=== PATIENT | female | born 1965 | race African-American/Black ===

== ENCOUNTER 2017-05-15 06:42 | Day surgery (SDC) | payer OTHER ==
[~2017-05-15] VITALS: Ht 167.6 cm; Wt 129.7 kg
[2017-05-15] VITALS (12 sets, daily range): BP systolic 109–143; BP diastolic 67–88
[~2017-05-15 06:42] MED LIST: ADVAIR 250-501 EACH INH; AMLODIPINE BESYL5 MG ORAL; BENAZEPRIL HCL40 MG ORAL; GABAPENTIN800 MG ORAL; HYDROCHLOROTHIA25 MG ORAL; METFORMIN HCL500 M1 ORAL; MIRTAZAPINE7.5 MG ORAL; Ropivacaine 5mg/ml Vial 30ml INJ ONE; TRAZODONE HCL50 MG ORAL; ceFAZolin 1gm in D5W 55ml IVP ONE; celeBREX 200mg Cap **SURGERY PATIENTS ONLY ORAL ONE; oxyCONTIN 20mg tab ORAL ONE
--- NOTE | 2017-05-15 07:25 | Pre-Procedure Note/Attestation ---
Pre-Procedure Note/Attestation Complete Prior to Procedure Planned Procedure: right Procedure Narrative: ankle arthroscopy, lateral ligament reconstruction Indications for Procedure Pre-Operative Diagnosis: right ankle ligament tear Attestation I attest that I discussed the nature of the procedure; its benefits; risks and complications; and alternatives (and the risks and benefits of such alternatives ), prior to the procedure, with the patient (or the patient's legal sales representative jewelry). I attest that, if there was a reasonable possibility of needing a blood transfusion, the patient (or the patient's legal sales representative jewelry) was given the [facility] standardized written summary, pursuant to the [place] Blood Safety Act ([place] Health and Safety Code # 1645, as amended). I attest that I re-evaluated the patient just prior to the surgery and that there has been no change in the patient's H&P, except as documented below: ANDREW SHARPE May 15, 2017 07:25
--- NOTE | 2017-05-15 07:25 | Operative Note - PDOC ---
Operative Note Operative Note Pre-op Diagnosis: right ankle ligament tear Procedure: right ankle arthrscopy, ligament reconstruction Post-op Diagnosis: same as pre-op plus Operative Findings: consistent w/pre-op dx studies Anesthesia: MAC Specimen: none Complications: none Condition: stable Estimated Blood Loss: none Implant(s) used?: No ANDREW SHARPE May 15, 2017 07:25
[2017-05-15] MEDS ORDERED: Norco 5mg/325mg tab ORAL PRN (07:30)
[2017-05-15] MEDS ORDERED: Tylenol #3 tab (300mg/30mg) ORAL PRN (07:30)
[2017-05-15] MEDS ORDERED: D5 1/2NS 1,000 ML IV SCH (07:30)
[2017-05-15] MEDS ORDERED: HYDROmorphone 1mg/ml Carpuject SUBQ PRN (07:30)
[2017-05-15] MEDS ORDERED: Morphine Sulfate PF 10 ML ONE (13:23)
[2017-05-15] MEDS ORDERED: Ketorolac 30mg Inj ONE ×2 (13:23→14:00)
[2017-05-15] MEDS ORDERED: Bupivacaine 0.5% Inj 30 ml vial INJ ONE (13:23)
[2017-05-15] MEDS ORDERED: Kenalog-40 1ml Vial ONE (13:23)
[2017-05-15] MEDS ORDERED: Propofol 200mg/20ml IV ONE (13:24)
[2017-05-15] MEDS ORDERED: LR 1000ml ONE (14:00)
[2017-05-15] MEDS ORDERED: NS Irrig 2000ml IRRIG ONE (14:00)
[2017-05-15] MEDS ORDERED: Morphine Sulfate 10mg/ml Inj ONE (14:00)
[2017-05-15] MEDS ORDERED: fentaNYL 100 mcg/2 mL IV ONE (14:00)
[2017-05-15] MEDS ORDERED: Midazolam 2mg/2ml Inj ONE (14:00)
[2017-05-15] MEDS ORDERED: LR 1000ml 1,000 ML IVLG SCH (14:13)
--- NOTE | 2017-05-15 14:13 | Anethesia Preoperative Eval ---
Anesthesia Pre-op PMH/ROS General Date of Evaluation: May 15, 2017 Time of Evaluation: 13:50 Anesthesiologist: Daphne ASA Score: ASA 3 Mallampati Score Class I : Soft palate, uvula, fauces, pillars visible Class II: Soft palate, uvula, fauces visible Class III: Soft palate, base of uvula visible Class IV: Only hard plate visible Mallampati Classification: Class III Surgeon: Samuel Diagnosis: R foot pain Surgical Procedure: R ancle arthroscopy Anesthesia History: none Social History: smoking - h/o Family History: no anesthesia problems Allergies: Coded Allergies: MEDROXYPROGESTERONE (Unverified Allergy, Unknown, 05/14/17) Uncoded Allergies: DEPO SHOT (Adverse Reaction, Intermediate, "blood clot in my leg", 05/14/17 ) Medications: see eMAR Past Medical History Cardiovascular: Reports: HTN, Denies: CAD, [place], valve dz, arrhythmia, other Pulmonary: Reports: GRAY, Denies: asthma, COPD, other Gastrointestinal/Genitourinary: Reports: GERD, Denies: CRI, ESRD, other Neurologic/Psychiatric: Reports: depression/anxiety, other - chronic pain, Denies: dementia, CVA, TIA Endocrine: Reports: DM, Denies: hypothyroidism, steroids, other HEENT: Denies: cataract (L), cataract (R), glaucoma, [place] (L), [place] (R), other Hematology/Immune: Reports: DVT - h/o Musculoskeletal/Integumentary: Reports: DJD Other: obesity - morbid obesity PMH Narrative: as above PSxH Narrative: Lumbar spine Anesthesia Pre-op Phys. Exam Physician Exam Last Vital Signs Date Time Temp Pulse Resp B/P (MAP) Pulse Ox O2 Delivery O2 Flow Rate FiO2 05/15/17 08:46 97.4 85 18 124/74 99 Room Air Constitutional: NAD Neurologic: CN 2-12 intact Cardiovascular: RRR, no M/R/G Respiratory: CTA Gastrointestinal: other - morbid obesity Airway Exam Mallampati Score: Class III MO: full Neck: short ROM: full Teeth: missing Dentures: no upper, no lower Anesthesia Pre-op A/P Labs see chart Studies Pre-op Studies: EKG - NSR Risk Assessment & Plan Assessment: ASA 3 Plan: GA with LMA R popliteal fossa block for p/op pain control Status Change Before Surgery: No Pre-Antibiotics Drug: Ancef 2 gr. Given Within 1 Hr of Incision: Yes Time Given: 14:50 ERNESTO VILLAGRAN M.D. May 15, 2017 14:13
[2017-05-15] MEDS ORDERED: Midazolam 2mg/2ml Inj IVP PRN (14:15)
[2017-05-15] MEDS ORDERED: Ketorolac 30mg Inj IV PRN (14:15)
[2017-05-15] MEDS ORDERED: DiphenhydrAMINE 50mg/ml Inj IVP PRN (14:15)
[2017-05-15] MEDS ORDERED: Meperidine 50mg/ml Inj(FOR RIGORS ONLY) IV PRN (14:15)
[2017-05-15] MEDS ORDERED: Hydromorphone 0.5mg/0.5ml inj IVP PRN (14:15)
[2017-05-15] MEDS ORDERED: Lidocaine 1% 10mg/ml/Epi 0.005mg/ml 30ml vial INJ ONE (15:26)
--- NOTE | 2017-05-15 16:55 | Immediate Post-Op Evaluation ---
Immediate Post-Op Evalulation Immediate Post-Op Evalulation Procedure: R ancle arthroscopy ligament reconstruction Date of Evaluation: May 15, 2017 Time of Evaluation: 16:54 IV Fluids: 1000 Blood Products: none Estimated Blood Loss: min Urinary Output: none Blood Pressure Systolic: 128 Blood Pressure Diastolic: 64 Pulse Rate: 87 Respiratory Rate: 20 O2 Sat by Pulse Oximetry: 99 Temperature (Fahrenheit): 98.4 Pain Score (1-10): 2 Nausea: No Vomiting: No Complications none Patient Status: reacts, patent, none Hydration Status: adequate ERNESTO VILLAGRAN M.D. May 15, 2017 16:55
--- NOTE | 2017-05-15 17:39 | 48 Hour Post Anesthesia Eval ---
Post Anesthesia Evaluation Procedure: R ancle arthroscopy ligament reconstruction Date of Evaluation: May 15, 2017 Time of Evaluation: 17:38 Blood Pressure Systolic: 138 0: 82 Pulse Rate: 70 Respiratory Rate: 20 Temperature (Fahrenheit): 97.6 O2 Sat by Pulse Oximetry: 98 Airway: patent Nausea: No Vomiting: No Pain Intensity: 2 Hydration Status: adequate Cardiopulmonary Status: stable Mental Status/LOC: patient returned to baseline Follow-up Care/Observations: n/a Post-Anesthesia Complications: none Follow-up care needed: ready to discharge ERNESTO VILLAGRAN M.D. May 15, 2017 17:39
--- NOTE | 2017-05-15 23:16 | Procedure Note ---
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 POSTOPERATIVE DIAGNOSES: 1. 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 2. Right ankle soft tissue impingement, medial and lateral gutter, right ankle. PROCEDURE: 1. Right ankle diagnostic arthroscopy and synovectomy. 2. Right anatomic lateral ligament reconstruction (Brostrom) with groove modification. SURGEON: Demetrius Baker M.D. ANESTHESIA: General. INDICATION FOR PROCEDURE: The patient is a pleasant female with right ankle sprain. She has little bit of pain and instability. She was diagnosed with chondroplasty of the anterior talofibular ligament and high-grade tear of the posterior talofibular ligament. Given that she failed conservative treatment, still has significant symptoms, she elected to undergo right ankle arthroscopy and lateral ligament reconstruction. Risks, limitations, expectations, and complications of the procedure were discussed in detail. All questions were addressed. DESCRIPTION OF PROCEDURE: An informed consent was obtained. The patient was brought to the operating room. The patient was placed under general anesthesia. The patient was then carefully placed on the table and tourniquet was applied to right proximal thigh. Right leg was prepped and draped in a sterile manner. Ancef was administered. Time-out was performed. The medial working portal just medial to the right ankle was then placed in traction. The initial medial portal just medial to the tibialis anterior tendon was identified with a 20-gauge needle. A 5 mL of Duramorph was injected into the joint. Once it was confirmed the needle was in the ankle joint, the skin was incised. Blunt dissection down to the ankle joint was performed. A trocar was placed into the ankle. There was synovitis in the anterior compartment of the right ankle. An inside-out lateral portal was established. A shear was then placed and a complete synovectomy of the anterior and lateral compartment of the ankle was performed. Once that was done, the lateral gutter was well visualized, free of any loose bodies. The camera was placed in the lateral viewing portal and synovectomy of the medial gutter was performed. Once the synovectomy was completed, medial gutter was entered, free of any meniscal chondral damage. There was no chondral damage to the tibiotalar joint. No loose bodies. At this point, the instruments were removed. Attention was turned towards the ligament reconstruction. A curvilinear incision along the fibula was made. Blunt dissection of subcutaneous tissue was performed. The extensor retinaculum was identified and protected with a sand retractor. At this point, the inferior aspect of the fibula was identified. The peroneal tendon sheath was incised and the peroneal tendon was explored and noted to be intact with no evidence of tenosynovitis. At this point, the attenuated tissue along the lateral ligament complex was identified and 0 Ethibond sutures were placed in [id number] fashion. Once the lateral ligament complex was imbricated, I then turned towards the groove modification. The extensor retinaculum was identified and the extensor retinaculum was now mobilized along the lateral margin along the fibula as well. This covered up the sutures real good. There was nice stability with anterior drawer testing, plantar flexion. At this point, subcutaneous tissue was approximated with 0 Vicryl suture. Dermabond dressing was applied. The patient was awoken and taken to recovery room with stable signs. ESTIMATED BLOOD LOSS: None. COMPLICATIONS: None. SPECIMENS: None. IMPLANTS: Multiple Ethibond sutures. Demetrius Baker M.D. DR: AGUSTÍN JOB#: [id number] CC: ROXIE
== END 2017-05-15 18:40 | disposition home or self-care (01) ==
LOC: SUR 06:42
DX: S93.491A Sprain of other ligament of right ankle, initial encounter (principal); M25.871 Other specified joint disorders, right ankle and foot; F17.210 Nicotine dependence, cigarettes, uncomplicated; I10 Essential (primary) hypertension; G47.33 Obstructive sleep apnea (adult) (pediatric); K21.9 Gastro-esophageal reflux disease without esophagitis; E11.9 Type 2 diabetes mellitus without complications; F41.9 Anxiety disorder, unspecified; F32.9 Major depressive disorder, single episode, unspecified; E66.01 Morbid (severe) obesity due to excess calories; Z86.718 Personal history of other venous thrombosis and embolism; Z68.42 Body mass index [BMI] 45.0-49.9, adult; X58.XXXA Exposure to other specified factors, initial encounter; Y93.9 Activity, unspecified; Y92.9 Unspecified place or not applicable
CPT/HCPCS: 27695; 29895; 82962; 97161; J0690; J1885; J2250; J2270; J2274; J2405; J2704; J2795; J3010; J3301; J3490; J7120; 94003; 94150